=== PATIENT | female | born 1950 | race Caucasian/White ===

== ENCOUNTER 2018-04-21 13:25 | Outpatient (CLI) | payer MEDICARE ==
--- NOTE | 2018-04-21 15:42 | BD ---
DEXA BONE MINERAL DENSITOMETRY EXAM, DENSITY STUDY: HISTORY: Osteoporosis, menopausal screening. Lumbar Spine: BMD (g/cm2) L1 0.939 T-Score: -0.5 L2 0.976 T-Score: -0.5 L3 0.939 T-Score: -1.3 L4 1.058 T-Score: 0.0 L1-L4 0.977 T-Score: -0.6 Within normal limits with no increased risk for fracture. LEFT HIP: Femoral Neck: 0.650 T-Score: -1.8 Total Femur: 0.940 T-Score: 0.0 Evidence for osteopenia with increased risk for fracture. FRAC SCORE: Major osteoporotic fracture 15%. Hip fracture 2.0%.
== END 2018-04-21 13:26 | disposition home or self-care (01) ==
LOC: BICMAMMO 13:25
PROVIDERS: ATTEND Internal Medicine
DX: Z12.31 Encounter for screening mammogram for malignant neoplasm of breast (principal); Z13.820 Encounter for screening for osteoporosis; M85.859 Other specified disorders of bone density and structure, unspecified thigh; R92.1 Mammographic calcification found on diagnostic imaging of breast
CPT/HCPCS: 77063; 77067; 77080

== ENCOUNTER 2021-09-23 13:41 | Outpatient (CLI) | payer MEDICARE | END 2021-09-23 13:42 | disposition home or self-care (01) | LOC: BICRAD 13:41 | PROVIDERS: ATTEND Family Medicine | DX: M25.561 Pain in right knee (principal); M25.562 Pain in left knee; M17.0 Bilateral primary osteoarthritis of knee ==